=== PATIENT | female | born 1990 | race Caucasian/White ===

== ENCOUNTER 2024-02-01 01:12 | Inpatient (IN) | payer SELFPAY ==
[2024-02-01] VITALS (61 sets, daily range): BP systolic 98–162; BP diastolic 49–94; PULSE 57–101; TEMP 97.6–98.4
[~2024-02-01] VITALS: Ht 152.4 cm; Wt 79.1 kg
--- NOTE | 2024-02-01 01:25 | NUR ---
G2L1 at 39 weeks and 2 days arrives to unit with complaint of spontaneous rupture of amniotic fluid and contractions. Pt is frisian speaking only. Video admissions recruiter used, ID number [id number] - Margarita. Pt reports feeling large gush of fluid around 2330 and has continued to leak clear fluid since then. Pt reports some spotting at times over the last few days but no bright red bleeding. Reports movement like normal. GDM this and patient reports she last checked her blood sugar 2 hours after lunch and it was 97. Clean gown on. Pt oriented to room, call light within reach, bed in low and locked position. US and toco explained and applied. Vitals obtained. Admission assessment started. Amnitrace positive. SVE - outer oss dilated 4/70/high, unable to reach presenting part due to patient discomfort.
[2024-02-01] MEDS ORDERED: Penicillin G Potassium 5,000,000 UNITS in NS 100 ML IV ONE (02:00)
[2024-02-01] MEDS ORDERED: LR 1,000 ML IV SCH (02:00)
--- NOTE | 2024-02-01 02:15 | NUR ---
18G IV started in right forearm with 1 attempt. Admission labs obtained off IV start. Lactated ringers infusing to gravity. Report given to Vazquez RoyalRN to assume care of patient at this time.
[2024-02-01] MEDS ORDERED: PRENATAL TABLET PO (02:36)
[2024-02-01] MEDS ORDERED: FOLIC ACID0.4 MG PO (02:37)
[2024-02-01 03:00] LABS: BASO % 0.3 % (0.0-2.0); EOS # 0.1 K/mm3 (0.0-0.7); EOS % 1.1 % (0.0-4.0); GRAN # 4.4 K/mm3 (1.4-6.5); GRAN % 62.2 % (42.2-75.2); HEMOGLOBIN 10.6 g/dl (12.5-16.0); LYMPH # 2.1 K/mm3 (1.2-3.4); LYMPH % 30.3 % (20.0-51.0); MEAN CELL VOLUME 81 fl (80.0-100.0); MEAN CORPUSCULAR HEMOGLOBIN 27 pg (27-31); MEAN CORPUSCULAR HGB CONC 33 g/dl (33.0-37.0); MEAN PLATELET VOLUME 11.5 fl (7.4-10.4); MONO # 0.4 K/mm3 (0.1-0.6); MONO % 5.8 % (1.7-9.3); PLATELET COUNT 223 K/mm3 (130-400); RED BLOOD COUNT 3.94 M/mm3 (4.10-5.30); REDCELL DISTRIBUTION WIDTH-CV 14.1 % (11.5-14.5)
[2024-02-01 03:01] LABS: HEMATOCRIT 31.7 % (37.0-47.0)
[2024-02-01] MEDS ORDERED: Penicillin G Potassium 2,500,000 UNITS in NS 100 ML IV SCH (06:00)
--- NOTE | 2024-02-01 07:32 | NUR ---
THIS RN IN PATIENTS ROOM TO DISCUSS PLAN OF CARE WITH FOOD TECHNICIAN CINTHIA ID#[id number]. THIS RN DISCUSSES PAIN MANAGEMENT PLAN, EMOTIONAL SUPPORT TEACHER FOLLOW UP, AND CONTRACTION PAIN AND FREQUENCY. PATIENT VERBALIZES SHE MAY WANT AN EPIDURAL LATER BUT NOT RIGHT NOW, PATIENT AND SIGNIFICANT OTHER VERBALIZE THEY WILL CALL FOR A EMOTIONAL SUPPORT TEACHER AFTER BABY IS BORN, AND PATIENT REPOSITIONED AT THIS TIME.
--- NOTE | 2024-02-01 09:50 | NUR ---
IN PATIENTS ROOM TO ASSESS PROGRESS AND REVIEW PLAN OF CARE. VIDEO LAUNCHMAN USED [employer] ID#[id number]. BEDSIDE SONO AT THIS TIME ANITRA. SVE /3. DISCUSSES PITOCIN AUGMENTATION WITH PATIENT AT THIS TIME, ALSO DISCUSSES PAIN MANAGEMENT OPTIONS. PATIENT AGREES WITH PLAN OF CARE AND VERBAL ORDER FOR PITOCIN GIVEN BY .
[2024-02-01] MEDS ORDERED: LR & Oxytocin 500 ML IV SCH (10:00)
[2024-02-01] MEDS ORDERED: ROPivacaine PF 0.2% 200 ML IV ONE (11:40)
[2024-02-01] MEDS ORDERED: Naloxone 0.4 MG/ML VIAL IV PRN ×2 (12:00→22:30)
[2024-02-01] MEDS ORDERED: diphenhydrAMINE 25 MG CAP PO PRN (12:00)
[2024-02-01] MEDS ORDERED: diphenhydrAMINE 50 MG/ML 1 ML VIAL IV PRN (12:00)
[2024-02-01] MEDS ORDERED: Ondansetron 4 MG/2 ML VIAL IV PRN (12:00)
[2024-02-01] MEDS ORDERED: ePHEDrine 50 MG/10 ML VIAL IV PRN (12:00)
--- NOTE | 2024-02-01 12:00 | NUR ---
1145- EFM AND TOCO UNHOOKED FOR PATIENT TO VOID, PATIENT ASSISTED TO RESTROOM. 1153- PATIENT BACK TO BED AFTER VOIDING. PATIENT POSITIONED FOR EPIDURAL PLACEMENT. DIFFICULTY TRACING FHR DUE TO MATERNAL POSITION.
--- NOTE | 2024-02-01 12:15 | NUR ---
1156- CHANTE LYNN IN PATIENTS ROOM TO DISCUSS EPIDURAL PLACEMENT. PROCEDURE EXPLAINED WITH SHAD HOT ROLL INSPECTOR ID#[id number]. THIS RN ATTMEPTS TO ADJUST EFM, DIFFICULTY TRACING FHR DUE TO MATERNAL POSITION. 1209- TEST DOSE ADMINISTERED BY CHANTE LYNN. PATIENT TOLERATES WELL. CONTINUED DIFFICULTY TRACING FHR. 1215- PATIENT REPOSITIONED TO WEDGED RIGHT. EFM TRACING FHR WELL, TOCO ADJUSTED. THIS RN REMAINS AT BEDSIDE TO MONITOR VITAL SIGNS.
--- NOTE | 2024-02-01 14:25 | NUR ---
1415- THIS RN TO BEDSIDE TO REPOSITION PATIETN IN REPSONSE TO DECELERATIONS. SVE /-2, PATIENT REQUESTS TO NOT BE REPOSITIONED AT THIS TIME. 1425- THIS RN RETURNS TO BEDSIDE FOR REPOSITIONING, THIS RN EXPLAINS IMPORTANCE OF REPOSITION. PATIENT REPOSITIONED TO WEDGED LEFT WITH A PEANUT BALL UNDER RIGHT LEG.
--- NOTE | 2024-02-01 14:55 | NUR ---
PATIENT REPOSITIONED TO RIGHT LATERAL "FLYING COWGIRL" WITH PEANUTBALL BETWEEN ANKLES.
--- NOTE | 2024-02-01 15:20 | NUR ---
THIS RN TO PATIENTS ROOM FOR SVE IN RESPONSE TO VARIABLE DECELERATION. SVE 6-7/90/-2.
--- NOTE | 2024-02-01 16:35 | NUR ---
1630 PATIENT IS UNCOMFORTABLE. PUSHES EPIDURAL BUTTON BUT DOES NOT HELP PAIN. Courtney ROMERO CRNA CALLED AND UPDATEDAND READY TO COME IN.
[2024-02-01] MEDS ORDERED: Chloroprocaine PF 3% (30 MG/ML) 20 ML VIAL ONE (16:41)
--- NOTE | 2024-02-01 18:06 | NUR ---
AT NURSES STATION AND ASKED ABOUT ANTIBIOTICS FOR PROLONGED RUPTURE. STATES IF SHE IS GETTING PENICILLIN THEN WE DO NOT NEED TO ORDER ANOTHER ANTIBIOTIC.
--- NOTE | 2024-02-01 18:30 | NUR ---
THIS RN IN ROOM WITH NAJMA IN RESPONSE TO A HEART RATE DECELERATION FOR 2 MINUTES INTO THE 50s. PATIENT REPOSITIONED TO RIGHT LATERAL AND DECELERATION RESOLVES WITH POSITION CHANGE. [facility] ASSUMES PATIENT CARE AT THIS TIME.
--- NOTE | 2024-02-01 18:54 | NUR ---
PT MOANING WITH CTX'S. PT STATES WITH FOXING CUTTING MACHINE OPERATOR SHE IS FEELING PAIN IN VAGINA AND LOTS OF PRESSURE. SVE ANT LIP NOTED. EPIDURAL PUMP BUTTON PUSHED. GERHARD NUCLEAR PROCESS ENGINEER NOTIFIED TO REDOSE. 1904 GERHARD HERE TO REDOSE EPIDURAL.
--- NOTE | 2024-02-01 19:10 | NUR ---
PT SITTING UP TO HIGH FOWLERS POSITION.
--- NOTE | 2024-02-01 19:15 | NUR ---
PT IS FEELING BETTER. STATES THE PAIN IS GONE.
--- NOTE | 2024-02-01 20:36 | NUR ---
DR VILLALOBOS AND NURSERY NURSE HERNANDEZ SOMMERS RN HERE FOR DELIVERY. PT PUSHING WITH CTX'S.
--- NOTE | 2024-02-01 20:39 | NUR ---
VAG DELIVERY OF MALE , BABY PLACED ON MOMS ABD, DRIED AND STIMULATED. AFTER ONE MINUTE THE CORD WAS CLAMPED AND CUT. BABY DRIED AND PLACED SKIN TO SKIN WITH MOM. 2041 PLACENTA DELIVERED INTACT. FIRST DEGREE LAC WITH REPAIR DONE. PITOCIN STARTED AT 333 CC/HR VIA PUMP PER PROTOCOL. FUNDUS FIRM AT U.
[2024-02-01] MEDS ORDERED: Loratadine 10 MG TAB PO PRN (21:00)
[2024-02-01] MEDS ORDERED: Magnes Hydrox (MOM) 80 MG/ML 30 ML CUP PO PRN (21:00)
[2024-02-01] MEDS ORDERED: traZODone 50 MG TAB PO PRN (21:00)
[2024-02-01] MEDS ORDERED: Mag/Al Hydrox/Simeth Susp 30 ML CUP PO PRN (22:30)
[2024-02-01] MEDS ORDERED: oxyCODONE 5 MG TAB PO PRN (22:30)
[2024-02-01] MEDS ORDERED: Ibuprofen 800 MG TAB PO SCH (22:30)
[2024-02-01] MEDS ORDERED: Acetaminophen 500 MG TAB PO PRN (22:30)
[2024-02-01] MEDS ORDERED: Measles/Mumps/Rubella Virus Vaccine Live w Diluent 0.5 ML VIAL SQ SCH (22:30)
[2024-02-01] MEDS ORDERED: Witch Hazel 50% Pads Bulk TUB TP PRN (22:30)
[2024-02-01] MEDS ORDERED: Phenylephrine/Mineral Oil/Petrolatum 57 GM TUBE RC PRN (22:30)
--- NOTE | 2024-02-01 23:00 | NUR ---
PT AMB TO BR TO VOID, PERICARE TAUGHT PT HOW TO PERFORM. PAD AND GOWN CHANGED. PT AMB TO WHEELCHAIR THEN TRANSFERED TO PP ROOM 214. PT ORIENTED TO ROOM, CALL LIGHT, MENU IS IN [place], PP CARE PACKET IN [place] ALSO. PT REQUESTED FOR THE BABY TO STAY IN THE NURSERY SO THEY CAN GET SOME SLEEP GIVE BABY A BOTTLE FOR FEEDINGS. SHE WILL CALL OUT WHEN SHE WAKES TO ASK FOR THE BABY.
[2024-02-02 02:15] VITALS: BP 108/58; PULSE 86; TEMP 98.2
[2024-02-02] MEDS ORDERED: MOTRIN 800800 MG/TAB PO (07:23)
[2024-02-02] MEDS ORDERED: Sennosides/Docusate 8.6-50 MG TAB PO SCH (08:00)
[2024-02-02] MEDS ORDERED: Prenatal Vitamins/Iron/FA TAB PO SCH (09:00)
--- NOTE | 2024-02-02 09:56 | NUR ---
Initial visit; Including the assistance of an Enterpreter, National Secretary offered congratulations and God's blessings along with "Thank-You" for choosing [facility] to patient and her .
[2024-02-02 20:45] VITALS: BP 116/69; PULSE 62; TEMP 98
[2024-02-03 07:45] VITALS: BP 113/81; PULSE 58; TEMP 98
--- NOTE | 2024-02-03 07:45 | NUR ---
THIS RN IN PATIENT ROOM TO PERFORM ASSESSMENT. INTERPRETATION THROUGH [employer] VIDEO HELICOPTER ENGINEER, DARIA ID#[id number] TRANSLATES ASSESSMENT QUESTIONS. PATIENT UPDATED ON PLAN OF CARE.
--- NOTE | 2024-02-03 13:16 | NUR ---
RN AT BEDSIDE WITH SHAD LIMA ID#[id number]. THIS RN REVIEWS DISCHARGE TEACHING WITH PATIENT AND SIGNIFICANT OTHER. PATIENT VERBALIZES UNDERSTANDING OF DISCHARGE TEACHING. PATIENT AMBULATORY OFF UNIT WITH SPOUSE, PATIENT DISCHARGED HOME IN STABLE CONDITION
== END 2024-02-03 13:16 | disposition home or self-care (01) | DRG 807 ==
LOC: LDRO 01:12 → OB 02:11 → LDR 02:11 → OB 23:00
PROVIDERS: ADMIT Obstetrics & Gynecology
PROC: 10E0XZZ Delivery of Products of Conception, External Approach (ICD-10-PCS; principal; 2024-02-01)
PROC: 0HQ9XZZ Repair Perineum Skin, External Approach (ICD-10-PCS; 2024-02-01)
DX: O99.824 Streptococcus B carrier state complicating childbirth (principal); Z37.0 Single live birth; Z3A.39 39 weeks gestation of pregnancy; O24.420 Gestational diabetes mellitus in childbirth, diet controlled; O70.0 First degree perineal laceration during delivery
CPT/HCPCS: J2401; J2540; J2590; J2795; J7120